=== PATIENT | male | born 1960 | race Two or more races ===

== ENCOUNTER 2018-12-20 19:57 | Emergency (ER) | payer OTHER, MEDICAID ==
[~2018-12-20] VITALS: Ht 177.8 cm; Wt 73.0 kg
[2018-12-20 23:05] VITALS: BP 137/83
== END 2018-12-21 02:31 | disposition left against medical advice (07) ==
LOC: ER 19:57
DX: Z53.21 Procedure and treatment not carried out due to patient leaving prior to being seen by health care provider (principal)